=== PATIENT | female | born 1990 | race Caucasian/White ===

== ENCOUNTER 2017-01-27 16:07 | Emergency (ER) | payer OTHER ==
[~2017-01-27] VITALS: Ht 177.8 cm; Wt 116.0 kg
[2017-01-27] MEDS ORDERED: NAPROXEN500 MG PO (16:57)
[2017-01-27] MEDS ORDERED: LIDODERM 5% P1 PATCH TD (16:57)
[2017-01-27] MEDS ORDERED: PREDNISONE20 MG PO (16:57)
[2017-01-27 17:31] VITALS: BP 121/75
== END 2017-01-27 17:32 | disposition home or self-care (01) ==
LOC: EME 16:07
DX: S39.012A Strain of muscle, fascia and tendon of lower back, initial encounter (principal); X50.0XXA Overexertion from strenuous movement or load, initial encounter; Y99.0 Civilian activity done for income or pay; F17.200 Nicotine dependence, unspecified, uncomplicated
CPT/HCPCS: 99281; 99283